=== PATIENT | male | born 1965 | race Caucasian/White ===

== ENCOUNTER 2023-09-01 09:21 | Day surgery (SDC) | payer BC ==
[~2023-09-01] VITALS: Ht 172.7 cm; Wt 94.8 kg
[~2023-09-01 09:21] MED LIST: NS 1,000 ML IV ONE; ROSU10TA61 PO; SIMV10TA21 PO
[2023-09-01 11:12] VITALS: TEMP 97
[2023-09-01 11:30] VITALS: BP 106/77; O2SAT 93
== END 2023-09-01 11:43 | disposition home or self-care (01) ==
LOC: M OPP 09:21
PROVIDERS: ATTEND Internal Medicine Gastroenterology
DX: Z12.11 Encounter for screening for malignant neoplasm of colon (principal); Z86.010 Personal history of colon polyps; Z83.718 Family history of other colon polyps; K63.5 Polyp of colon; K64.8 Other hemorrhoids; K57.30 Diverticulosis of large intestine without perforation or abscess without bleeding; Z79.02 Long term (current) use of antithrombotics/antiplatelets